=== PATIENT | female | born 1940 | race Caucasian/White ===

== ENCOUNTER 2016-10-24 09:24 | Inpatient (IN) | payer MEDICARE, OTHER ==
[~2016-10-24] VITALS: Ht 152.4 cm; Wt 108.6 kg
[~2016-10-24 09:24] MED LIST: ACIPHEX20 MG PO; AMBIEN 10MG10 MG PO; AMBIEN 5MG TABLE5 MG PO; AMITRIPTYLINE H10 M1 PO; AMOXICILLIN 50500 MG PO; ARICEPT10 MG PO; ASPIR-LOW81 MG PO; ATACAND 16M16 MG/TAB PO; ATACAND PO; ATIVAN 0.50.5 MG/TAB PO; BETAPACE 120MG120 MG PO; BETAPACE AF120 MG PO; CARDIZEM LA240 MG PO; CATAPRES-TTS 10.1 M1 TD; CELEXA 20MG20 MG/TAB PO; CELEXA40 MG PO; CENTRUM SILVER1 TA1 PO; CLARITIN10 MG PO; CLEOCIN HC150 MG/CAP PO; CLEOCIN HCL300 MG PO; CLOPIDOGREL; CLOTRIMAZOLE1% TOP; COLACE 100100 MG/CAP PO; COUMADIN 1MG1 MG/TAB PO; COUMADIN 2MG2 MG/TAB PO; COUMADIN 3MG3 MG/TAB PO; COUMADIN 5MG5 MG/TAB PO; COUMADIN4 MG PO; COZAAR 50MG50 MG/TAB PO; DIABETA 2.5MG2.5 MG PO; DOXYCYCLINE 10100 MG PO; DULCOLAX S10 MG/SUPP RC; DULCOLAX TAB5 MG PO; FERROUS SU325 MG/TAB PO; FLONASE NASAL S16 GM NS; GABAPENTIN100 MG PO; GABAPENTIN300 M1 PO; GLYBURIDE; GLYBURIDE5 MG PO; GUANFACINE1 MG PO; HEPARIN 50500 U/5 ML IV; HEPARIN FLUS100 U/ML IV; IMODIUM 2MG CAPS2 MG PO; IMURAN 50MG TAB50 MG PO; INSLANT SQ; IPRATROPIUM BROM3 M1 IH; KLOR-CON 1010 MEQ PO; LASIX 20MG TABL20 MG PO; LEVAQUIN 5500 MG/TA1 PO; LEVAQUIN 750MG750 M1 PO; LEXAPRO 10MG10 MG PO; LEXAPRO20 MG PO; LIPITOR 10MG10 MG PO; LOVENOX 100100 MG/ML SQ; LOVENOX 4040 MG/0.4 SQ; MACROBID 1100 MG/CAP PO; MAGNESIUM OXID400 MG PO; MAXIPIME2 GM IV; MICRONASE5 MG PO; MILK OF MA400 MG/5 M PO; MILK OF MA400 MG/52 PO; MIRAPEX0.5 MG PO; MUCINEX 60600 MG/TA1 PO; MYLANTA 150 ML150 M1 PO; NEURONTIN300 MG/CAP PO; NORVASC 10MG10 MG PO; NORVASC 5MG5 MG/TAB PO; NORVASC5 MG PO; NOVLOG SQ; NOVOLOG 100U100 U/M1 SC; NS INT FLUSH 1010 ML IV; NYSTATIN POWDER15 GM TOP; NYSTATIN POWDER30 GM TOP; OMEPRAZOLE DR20 MG PO; ONE-A-DAY WOMEN1 TAB PO; PHENERGAN25 MG; PLAVIX 75MG TAB75 MG PO; PREDNISONE10 MG PO; PREDNISONE20 MG PO; PRIL40 PO; PRINIVIL10 MG PO; PROTONIX 40MG T40 MG PO; SEROQUEL 1100 MG/TAB PO; SEROQUEL 2525 MG/TAB PO; SEROQUEL50 MG PO; SERTRALINE; SOTALOL80 MG PO; SYNTHROID0.1 MG PO; SYNTHROID0.1 MG/TAB PO; TYLENOL 325MG325 MG PO; TYLENOL 500MG500 MG PO; TYLENOL SU650 MG/SUP RC; ULTRAM 50MG TAB50 MG PO; VANCOCIN HCL1 GM IV; VTAMINC250TA PO; XARELTO20 MG PO; ZOCOR 20MG20 MG PO; ZOCOR20 MG PO; ZOLOFT100 MG PO
[2016-10-24 10:00] LABS: HEMATOCRIT 45.3 % (37.0-47.0); HEMOGLOBIN 14.1 g/dl (12.5-16.0); MEAN CELL VOLUME 103 fl (80.0-100.0); MEAN CORPUSCULAR HEMOGLOBIN 32 pg (27.0-31.0); MEAN CORPUSCULAR HGB CONC 31 g/dl (33.0-37.0); MEAN PLATELET VOLUME 11.4 fl (7.4-10.4); PLATELET COUNT 216 K/mm3 (130-400); RED BLOOD COUNT 4.41 M/mm3 (4.10-5.30); REDCELL DISTRIBUTION WIDTH-CV 13.6 % (11.5-14.5); WHITE BLOOD COUNT 14.9 K/mm3 (4.8-10.8)
[2016-10-24 10:02] LABS: ADD PATHOLOGY DIFF REVIEW NO
[2016-10-24 10:03] LABS: PROTHROMBIN TIME 42.1 SECONDS (9.7-12.8)
[2016-10-24 10:08] LABS: INR 3.6 (0.8-3.0)
[2016-10-24] MEDS ORDERED: NEOMYCIN AND PO20 ML OT (10:10)
[2016-10-24] MEDS ORDERED: SYNTHROID0.1 MG/TAB PO (10:12)
[2016-10-24] MEDS ORDERED: CIPRO 500MG TA500 MG PO (10:14)
[2016-10-24 10:20] LABS: ADJUSTED CALCIUM 8.9 mg/dL (8.4-10.2); ALBUMIN 3.7 gm/dL (3.5-5.0); BILIRUBIN,TOTAL 0.9 mg/dL (0.0-1.0); CALCIUM 8.7 mg/dL (8.4-10.2); CREATININE, serum 3.7 mg/dL (0.52-1.25); POTASSIUM 4.2 mmol/L (3.4-5.0); TOTAL PROTEIN 7.5 gm/dL (6.4-8.2)
[2016-10-24] MEDS ORDERED: NAMENDA5 MG PO (10:20)
[2016-10-24] MEDS ORDERED: SEROQUEL 2525 MG/TAB PO (10:21)
[2016-10-24 10:37] LABS: C-REACTIVE PROTEIN 11.3 mg/dL (0.0-0.9)
[2016-10-24 10:44] LABS: BAND 6 % (0-10); METAMYELOCYTE 1 % (0-0); NEUTROPHILS 67 % (42.0-75.2); PLATELET ESTIMATE NORMAL (NORMAL)
[2016-10-24 10:45] LABS: TOTAL CELLS COUNTED 100
[2016-10-24 10:46] LABS: TOXIC GRANULATION PRESENT
[2016-10-24 12:33] VITALS: BP 122/61; PULSE 70; TEMP 98.9
[2016-10-24 16:05] LABS: MAGNESIUM 2.2 mg/dL (1.6-2.3); PHOSPHOROUS 6.9 mg/dL (2.5-4.5)
[2016-10-24 17:19] LABS: PH 5 (5-8); SQUAMOUS EPITHELIAL 0-2 /hpf; URINE APPEARANCE Cloudy; URINE BACTERIA Rare /hpf; URINE BILIRUBIN Negative (NEGATIVE); URINE BLOOD Negative (NEGATIVE); URINE COLOR Amber; URINE GLUCOSE Negative (NEGATIVE); URINE KETONE Negative (NEGATIVE); URINE UROBILINOGEN Negative (NEGATIVE); URINE WBC 0-2 /hpf
[2016-10-24 17:35] VITALS: BP 134/68; PULSE 85; TEMP 97.6
[2016-10-24 18:21] LABS: CREATININE, serum 3.68 mg/dL (0.52-1.25)
[2016-10-24 18:53] LABS: FRACTIONAL EXCRETION OF NA+ 2.4 %
[2016-10-24 20:22] VITALS: BP 108/50; PULSE 70; TEMP 97.4
[2016-10-25] VITALS (7 sets, daily range): BP systolic 81–159; BP diastolic 52–116; PULSE 69–73; TEMP 96.6–97.6
[2016-10-25 07:24] LABS: BASO % 0.3 % (0.0-2.0); EOS % 0.2 % (0-4.0); GRAN # 8.4 (1.4-6.5); GRAN % 73.1 % (42.2-75.2); HEMATOCRIT 43.7 % (37.0-47.0); HEMOGLOBIN 12.8 g/dl (12.5-16.0); LYMPH # 1.5 (1.2-3.4); LYMPH % 12.8 % (20.0-51.0); MEAN CORPUSCULAR HGB CONC 29 g/dl (33.0-37.0); MEAN PLATELET VOLUME 11.7 fl (7.4-10.4); MONO # 1.5 (0.1-0.6); MONO % 12.7 % (1.7-9.3); PLATELET COUNT 196 K/mm3 (130-400); RED BLOOD COUNT 4.02 M/mm3 (4.10-5.30); REDCELL DISTRIBUTION WIDTH-CV 13.6 % (11.5-14.5); WHITE BLOOD COUNT 11.4 K/mm3 (4.8-10.8)
[2016-10-25 07:50] LABS: CALCIUM 7.5 mg/dL (8.4-10.2); POTASSIUM 4.5 mmol/L (3.4-5.0)
[2016-10-25 07:54] LABS: CREATININE, serum 4.3 mg/dL (0.52-1.25)
[2016-10-25 07:59] LABS: INR 2.9 (0.8-3.0); PROTHROMBIN TIME 33.6 SECONDS (9.7-12.8)
[2016-10-25 08:47] LABS: MEAN CELL VOLUME 109 fl (80.0-100.0); MEAN CORPUSCULAR HEMOGLOBIN 32 pg (27.0-31.0)
[2016-10-26] VITALS (9 sets, daily range): BP systolic 85–133; BP diastolic 42–90; PULSE 58–74; TEMP 96.8–97.8
[2016-10-26 06:10] LABS: BASO # 0.1 (0.0-0.2); BASO % 0.5 % (0.0-2.0); EOS # 0.1 (0.0-0.7); EOS % 0.7 % (0-4.0); GRAN # 6.9 (1.4-6.5); GRAN % 66.7 % (42.2-75.2); HEMATOCRIT 42.2 % (37.0-47.0); HEMOGLOBIN 12.4 g/dl (12.5-16.0); LYMPH # 1.8 (1.2-3.4); LYMPH % 17.1 % (20.0-51.0); MEAN CELL VOLUME 106 fl (80.0-100.0); MEAN CORPUSCULAR HEMOGLOBIN 31 pg (27.0-31.0); MEAN CORPUSCULAR HGB CONC 29 g/dl (33.0-37.0); MEAN PLATELET VOLUME 11.2 fl (7.4-10.4); MONO # 1.4 (0.1-0.6); MONO % 13.7 % (1.7-9.3); PLATELET COUNT 186 K/mm3 (130-400); RED BLOOD COUNT 3.97 M/mm3 (4.10-5.30); REDCELL DISTRIBUTION WIDTH-CV 13.7 % (11.5-14.5); WHITE BLOOD COUNT 10.4 K/mm3 (4.8-10.8)
[2016-10-26 06:15] LABS: INR 2.3 (0.8-3.0); PROTHROMBIN TIME 26.3 SECONDS (9.7-12.8)
[2016-10-26 06:29] LABS: CALCIUM 7.6 mg/dL (8.4-10.2); MAGNESIUM 1.9 mg/dL (1.6-2.3); PHOSPHOROUS 8.1 mg/dL (2.5-4.5); POTASSIUM 4.5 mmol/L (3.4-5.0)
[2016-10-26 06:38] LABS: CREATININE, serum 5.06 mg/dL (0.52-1.25)
[2016-10-27] VITALS (419 sets, daily range): BP systolic 86–104; BP diastolic 37–61; PULSE 68–102; TEMP 96.8–98.5; O2SAT 79–100
[2016-10-27 14:05] LABS: BASO # 0.1 (0.0-0.2); BASO % 0.5 % (0.0-2.0); EOS % 0.4 % (0-4.0); GRAN # 6.6 (1.4-6.5); GRAN % 69.9 % (42.2-75.2); HEMATOCRIT 42.1 % (37.0-47.0); HEMOGLOBIN 12.8 g/dl (12.5-16.0); LYMPH # 1.6 (1.2-3.4); LYMPH % 16.7 % (20.0-51.0); MEAN CELL VOLUME 104 fl (80.0-100.0); MEAN CORPUSCULAR HEMOGLOBIN 32 pg (27.0-31.0); MEAN CORPUSCULAR HGB CONC 30 g/dl (33.0-37.0); MEAN PLATELET VOLUME 11.5 fl (7.4-10.4); MONO # 1.1 (0.1-0.6); MONO % 11.5 % (1.7-9.3); PLATELET COUNT 176 K/mm3 (130-400); RED BLOOD COUNT 4.04 M/mm3 (4.10-5.30); REDCELL DISTRIBUTION WIDTH-CV 13.3 % (11.5-14.5); WHITE BLOOD COUNT 9.4 K/mm3 (4.8-10.8)
[2016-10-27 14:54] LABS: CALCIUM 7.6 mg/dL (8.4-10.2); POTASSIUM 4.7 mmol/L (3.4-5.0)
[2016-10-27 14:56] LABS: CREATININE, serum 5.58 mg/dL (0.52-1.25)
[2016-10-28] VITALS (1162 sets, daily range): BP systolic 86–142; BP diastolic 50–87; PULSE 60–70; TEMP 96.6–98.6; O2SAT 75–100
[2016-10-28 06:48] LABS: BASO # 0.1 (0.0-0.2); BASO % 0.7 % (0.0-2.0); EOS # 0.1 (0.0-0.7); EOS % 0.8 % (0-4.0); GRAN # 5.8 (1.4-6.5); GRAN % 66.4 % (42.2-75.2); HEMATOCRIT 41.8 % (37.0-47.0); HEMOGLOBIN 12.8 g/dl (12.5-16.0); LYMPH # 1.7 (1.2-3.4); LYMPH % 19.7 % (20.0-51.0); MEAN CELL VOLUME 103 fl (80.0-100.0); MEAN CORPUSCULAR HEMOGLOBIN 32 pg (27.0-31.0); MEAN CORPUSCULAR HGB CONC 31 g/dl (33.0-37.0); MEAN PLATELET VOLUME 11.7 fl (7.4-10.4); MONO % 11.4 % (1.7-9.3); PLATELET COUNT 193 K/mm3 (130-400); RED BLOOD COUNT 4.06 M/mm3 (4.10-5.30); REDCELL DISTRIBUTION WIDTH-CV 13.3 % (11.5-14.5); WHITE BLOOD COUNT 8.7 K/mm3 (4.8-10.8)
[2016-10-28 06:56] LABS: CALCIUM 8.1 mg/dL (8.4-10.2); POTASSIUM 4.5 mmol/L (3.4-5.0)
[2016-10-28 07:00] LABS: CREATININE, serum 6.32 mg/dL (0.52-1.25)
[2016-10-28 07:20] LABS: THYROID STIMULATING HORMONE 0.988 uIU/mL (0.465-4.680)
[2016-10-29] VITALS (939 sets, daily range): BP systolic 102–141; BP diastolic 56–116; PULSE 64–70; TEMP 97.1–97.8; O2SAT 88–100
[2016-10-29 08:21] LABS: BASO % 0.3 % (0.0-2.0); EOS # 0.1 (0.0-0.7); EOS % 0.5 % (0-4.0); GRAN # 7.1 (1.4-6.5); GRAN % 73.5 % (42.2-75.2); HEMATOCRIT 43.5 % (37.0-47.0); HEMOGLOBIN 13.5 g/dl (12.5-16.0); LYMPH # 1.3 (1.2-3.4); LYMPH % 13.3 % (20.0-51.0); MEAN CELL VOLUME 101 fl (80.0-100.0); MEAN CORPUSCULAR HEMOGLOBIN 31 pg (27.0-31.0); MEAN CORPUSCULAR HGB CONC 31 g/dl (33.0-37.0); MEAN PLATELET VOLUME 11.2 fl (7.4-10.4); MONO # 1.2 (0.1-0.6); MONO % 11.9 % (1.7-9.3); PLATELET COUNT 201 K/mm3 (130-400); RED BLOOD COUNT 4.31 M/mm3 (4.10-5.30); REDCELL DISTRIBUTION WIDTH-CV 13.2 % (11.5-14.5); WHITE BLOOD COUNT 9.7 K/mm3 (4.8-10.8)
[2016-10-29 08:27] LABS: PH 5 (5-8); SQUAMOUS EPITHELIAL 0-2 /hpf; URINE APPEARANCE Cloudy; URINE BACTERIA Many /hpf; URINE BILIRUBIN Negative (NEGATIVE); URINE BLOOD 3+ (NEGATIVE); URINE COLOR Yellow; URINE GLUCOSE Negative (NEGATIVE); URINE KETONE Negative (NEGATIVE); URINE RBC >50 /hpf; URINE UROBILINOGEN Negative (NEGATIVE); URINE WBC >50 /hpf
[2016-10-29 08:34] LABS: ADJUSTED CALCIUM 8.9 mg/dL (8.4-10.2); BILIRUBIN,TOTAL 0.7 mg/dL (0.0-1.0); CALCIUM 8.1 mg/dL (8.4-10.2); MAGNESIUM 2.2 mg/dL (1.6-2.3); POTASSIUM 4.9 mmol/L (3.4-5.0); TOTAL PROTEIN 6.7 gm/dL (6.4-8.2)
[2016-10-29 08:43] LABS: CREATININE, serum 7.34 mg/dL (0.52-1.25); PHOSPHOROUS 9.7 mg/dL (2.5-4.5)
[2016-10-30] VITALS (589 sets, daily range): BP systolic 113–153; BP diastolic 59–101; PULSE 70–98; TEMP 96.6–98; O2SAT 85–97
[2016-10-30 07:53] LABS: BASO % 0.4 % (0.0-2.0); EOS # 0.1 (0.0-0.7); GRAN # 4.8 (1.4-6.5); GRAN % 68.9 % (42.2-75.2); HEMATOCRIT 39.5 % (37.0-47.0); HEMOGLOBIN 12.5 g/dl (12.5-16.0); LYMPH # 1.5 (1.2-3.4); MEAN CELL VOLUME 99 fl (80.0-100.0); MEAN CORPUSCULAR HEMOGLOBIN 31 pg (27.0-31.0); MEAN CORPUSCULAR HGB CONC 32 g/dl (33.0-37.0); MONO # 0.6 (0.1-0.6); MONO % 7.8 % (1.7-9.3); PLATELET COUNT 174 K/mm3 (130-400); RED BLOOD COUNT 3.99 M/mm3 (4.10-5.30); REDCELL DISTRIBUTION WIDTH-CV 13.5 % (11.5-14.5)
[2016-10-30 08:06] LABS: BILIRUBIN,TOTAL 0.6 mg/dL (0.0-1.0); CALCIUM 8.2 mg/dL (8.4-10.2); MAGNESIUM 2.1 mg/dL (1.6-2.3); POTASSIUM 4.2 mmol/L (3.4-5.0); TOTAL PROTEIN 6.5 gm/dL (6.4-8.2)
[2016-10-30 08:09] LABS: CREATININE, serum 5.42 mg/dL (0.52-1.25)
[2016-10-31] VITALS (8 sets, daily range): BP systolic 140–163; BP diastolic 74–97; PULSE 76–90; TEMP 97.4–99.1
[2016-10-31 07:00] LABS: HEMATOCRIT 42.9 % (37.0-47.0); HEMOGLOBIN 13.8 g/dl (12.5-16.0); MEAN CELL VOLUME 97 fl (80.0-100.0); MEAN CORPUSCULAR HEMOGLOBIN 31 pg (27.0-31.0); MEAN CORPUSCULAR HGB CONC 32 g/dl (33.0-37.0); MEAN PLATELET VOLUME 11.5 fl (7.4-10.4); PLATELET COUNT 192 K/mm3 (130-400); RED BLOOD COUNT 4.41 M/mm3 (4.10-5.30); REDCELL DISTRIBUTION WIDTH-CV 13.5 % (11.5-14.5); WHITE BLOOD COUNT 12.6 K/mm3 (4.8-10.8)
[2016-10-31 07:20] LABS: ADJUSTED CALCIUM 9.2 mg/dL (8.4-10.2); ALBUMIN 3.1 gm/dL (3.5-5.0); BILIRUBIN,TOTAL 0.7 mg/dL (0.0-1.0); CALCIUM 8.5 mg/dL (8.4-10.2); MAGNESIUM 2.1 mg/dL (1.6-2.3); PHOSPHOROUS 6.4 mg/dL (2.5-4.5); POTASSIUM 3.9 mmol/L (3.4-5.0); TOTAL PROTEIN 6.9 gm/dL (6.4-8.2)
[2016-10-31 07:21] LABS: ADD PATHOLOGY DIFF REVIEW NO
[2016-10-31 07:40] LABS: CREATININE, serum 5.66 mg/dL (0.52-1.25)
[2016-10-31 08:32] LABS: BAND 5 % (0-10); BASOPHIL 1 % (0-2); EOSINOPHIL 1 % (0-4); NEUTROPHILS 68 % (42.0-75.2); PLATELET ESTIMATE NORMAL (NORMAL); TOTAL CELLS COUNTED 100
[2016-10-31 19:04] LABS: HEMATOCRIT 42.4 % (37.0-47.0); HEMOGLOBIN 13.9 g/dl (12.5-16.0); MEAN CELL VOLUME 96 fl (80.0-100.0); MEAN CORPUSCULAR HEMOGLOBIN 32 pg (27.0-31.0); MEAN CORPUSCULAR HGB CONC 33 g/dl (33.0-37.0); MEAN PLATELET VOLUME 11.4 fl (7.4-10.4); PLATELET COUNT 188 K/mm3 (130-400); REDCELL DISTRIBUTION WIDTH-CV 13.6 % (11.5-14.5); WHITE BLOOD COUNT 13.8 K/mm3 (4.8-10.8)
[2016-10-31 19:28] LABS: INR 6.2 (0.8-3.0); PROTHROMBIN TIME 72.3 SECONDS (9.7-12.8)
[2016-11-01 04:23] VITALS: BP 160/91; PULSE 94; TEMP 98.5
[2016-11-01 07:34] LABS: BASO % 0.3 % (0.0-2.0); EOS # 0.1 (0.0-0.7); EOS % 0.9 % (0-4.0); GRAN # 9.7 (1.4-6.5); GRAN % 72.1 % (42.2-75.2); HEMATOCRIT 42.6 % (37.0-47.0); HEMOGLOBIN 13.9 g/dl (12.5-16.0); LYMPH # 1.7 (1.2-3.4); LYMPH % 12.9 % (20.0-51.0); MEAN CELL VOLUME 98 fl (80.0-100.0); MEAN CORPUSCULAR HEMOGLOBIN 32 pg (27.0-31.0); MEAN CORPUSCULAR HGB CONC 33 g/dl (33.0-37.0); MEAN PLATELET VOLUME 12.1 fl (7.4-10.4); MONO # 1.8 (0.1-0.6); PLATELET COUNT 184 K/mm3 (130-400); RED BLOOD COUNT 4.37 M/mm3 (4.10-5.30); REDCELL DISTRIBUTION WIDTH-CV 13.9 % (11.5-14.5); WHITE BLOOD COUNT 13.4 K/mm3 (4.8-10.8)
[2016-11-01 07:37] LABS: MONO % 13.1 % (1.7-9.3)
[2016-11-01 07:42] LABS: ADJUSTED CALCIUM 9.2 mg/dL (8.4-10.2); ALBUMIN 3.2 gm/dL (3.5-5.0); BILIRUBIN,TOTAL 0.7 mg/dL (0.0-1.0); CALCIUM 8.6 mg/dL (8.4-10.2); MAGNESIUM 2.2 mg/dL (1.6-2.3); PHOSPHOROUS 7.1 mg/dL (2.5-4.5); POTASSIUM 3.9 mmol/L (3.4-5.0); TOTAL PROTEIN 6.9 gm/dL (6.4-8.2)
[2016-11-01 07:58] LABS: CREATININE, serum 6.34 mg/dL (0.52-1.25)
[2016-11-01 08:13] LABS: PROTHROMBIN TIME 38.1 SECONDS (9.7-12.8)
[2016-11-01 08:16] LABS: INR 3.3 (0.8-3.0)
[2016-11-01 08:20] VITALS: BP 154/91; PULSE 96; TEMP 97.6
[2016-11-01] MEDS ORDERED: XARELTO20 MG PO (10:05)
[2016-11-01] MEDS ORDERED: ATIVAN 0.50.5 MG/TAB PO ×3 (10:08→10:19)
[2016-11-01] MEDS ORDERED: SEROQUEL 1100 MG/TAB PO (10:09)
[2016-11-01] MEDS ORDERED: SEROQUEL 2525 MG/TAB PO (10:10)
[2016-11-01] MEDS ORDERED: VITAMIN C500 MG PO (10:13)
[2016-11-01] MEDS ORDERED: CATAPRES-TTS 10.1 M1 TD (10:13)
[2016-11-01] MEDS ORDERED: ULTRAM 50MG TAB50 MG PO (10:21)
[2016-11-01 11:24] VITALS: BP 151/77; PULSE 80; TEMP 97.5
[2016-11-01 16:32] VITALS: BP 157/80; PULSE 75; TEMP 97.7
[2016-11-01 22:19] VITALS: BP 155/92; PULSE 104; TEMP 98.2
[2016-11-02] VITALS (7 sets, daily range): BP systolic 127–150; BP diastolic 63–98; PULSE 84–130; TEMP 96.8–99
[2016-11-02 07:29] LABS: CALCIUM 8.7 mg/dL (8.4-10.2); INR 1.6 (0.8-3.0); POTASSIUM 3.7 mmol/L (3.4-5.0)
[2016-11-02 07:46] LABS: CREATININE, serum 4.66 mg/dL (0.52-1.25)
[2016-11-03 01:13] VITALS: BP 139/81; PULSE 74; TEMP 97.6
[2016-11-03 04:45] VITALS: BP 152/84; PULSE 114; TEMP 97.5
[2016-11-03 07:56] LABS: INR 1.4 (0.8-3.0); PROTHROMBIN TIME 15.4 SECONDS (9.7-12.8)
[2016-11-03 08:04] VITALS: BP 145/86; PULSE 120; TEMP 97.3
[2016-11-03 08:16] LABS: POTASSIUM 3.9 mmol/L (3.4-5.0)
[2016-11-03 11:12] LABS: POTASSIUM 4.4 mmol/L (3.4-5.0)
[2016-11-03 11:17] LABS: CREATININE, serum 4.97 mg/dL (0.52-1.25)
[2016-11-03 12:00] VITALS: BP 154/96; PULSE 76; TEMP 98
[2016-11-03 19:58] VITALS: PULSE 106; TEMP 98.7
[2016-11-04 01:39] VITALS: BP 108/62; PULSE 107; TEMP 97.8
[2016-11-04 03:36] VITALS: PULSE 56; TEMP 98
[2016-11-04 07:31] LABS: INR 1.5 (0.8-3.0); PROTHROMBIN TIME 16.5 SECONDS (9.7-12.8)
[2016-11-04 07:47] LABS: HEMATOCRIT 44.3 % (37.0-47.0); HEMOGLOBIN 14.2 g/dl (12.5-16.0); MEAN CELL VOLUME 98 fl (80.0-100.0); MEAN CORPUSCULAR HEMOGLOBIN 31 pg (27.0-31.0); MEAN CORPUSCULAR HGB CONC 32 g/dl (33.0-37.0); MEAN PLATELET VOLUME 12.2 fl (7.4-10.4); PLATELET COUNT 214 K/mm3 (130-400); RED BLOOD COUNT 4.52 M/mm3 (4.10-5.30); WHITE BLOOD COUNT 15.5 K/mm3 (4.8-10.8)
[2016-11-04 07:55] LABS: CALCIUM 9.1 mg/dL (8.4-10.2); CREATININE, serum 3.47 mg/dL (0.52-1.25); POTASSIUM 3.6 mmol/L (3.4-5.0)
[2016-11-04 08:27] VITALS: BP 159/97; PULSE 107; TEMP 97.6
[2016-11-04 11:59] VITALS: BP 166/95; PULSE 79; TEMP 97.6
[2016-11-04 14:37] LABS: CREATININE, serum 3.47 mg/dL (0.52-1.25); POTASSIUM 3.8 mmol/L (3.4-5.0)
[2016-11-04 16:33] VITALS: BP 178/81; PULSE 88; TEMP 98.7
[2016-11-04 20:36] VITALS: BP 156/104; PULSE 105
[2016-11-04 21:07] LABS: CREATININE, serum 3.42 mg/dL (0.52-1.25); POTASSIUM 4.4 mmol/L (3.4-5.0)
[2016-11-05] VITALS (7 sets, daily range): BP systolic 160–182; BP diastolic 90–111; PULSE 77–108; TEMP 97.8–99
[2016-11-05 06:25] LABS: HEMATOCRIT 43.4 % (37.0-47.0); HEMOGLOBIN 13.9 g/dl (12.5-16.0); MEAN CELL VOLUME 98 fl (80.0-100.0); MEAN CORPUSCULAR HEMOGLOBIN 31 pg (27.0-31.0); MEAN CORPUSCULAR HGB CONC 32 g/dl (33.0-37.0); MEAN PLATELET VOLUME 11.8 fl (7.4-10.4); PLATELET COUNT 211 K/mm3 (130-400); RED BLOOD COUNT 4.45 M/mm3 (4.10-5.30); REDCELL DISTRIBUTION WIDTH-CV 14.3 % (11.5-14.5); WHITE BLOOD COUNT 16.8 K/mm3 (4.8-10.8)
[2016-11-05 06:29] LABS: ADD PATHOLOGY DIFF REVIEW NO
[2016-11-05 06:37] LABS: BAND 6 % (0-10); NEUTROPHILS 81 % (42.0-75.2); PLATELET ESTIMATE NORMAL (NORMAL); TOTAL CELLS COUNTED 100
[2016-11-05 06:51] LABS: CREATININE, serum 3.53 mg/dL (0.52-1.25); POTASSIUM 3.8 mmol/L (3.4-5.0)
[2016-11-05 08:57] LABS: INR 1.8 (0.8-3.0); PROTHROMBIN TIME 19.8 SECONDS (9.7-12.8)
[2016-11-06 01:13] VITALS: BP 178/74; PULSE 90; TEMP 98.7
[2016-11-06 05:49] VITALS: BP 163/87; PULSE 97; TEMP 97.8
[2016-11-06 07:53] LABS: HEMATOCRIT 44.9 % (37.0-47.0); HEMOGLOBIN 14.2 g/dl (12.5-16.0); MEAN CELL VOLUME 98 fl (80.0-100.0); MEAN CORPUSCULAR HEMOGLOBIN 31 pg (27.0-31.0); MEAN CORPUSCULAR HGB CONC 32 g/dl (33.0-37.0); MEAN PLATELET VOLUME 11.8 fl (7.4-10.4); PLATELET COUNT 223 K/mm3 (130-400); RED BLOOD COUNT 4.57 M/mm3 (4.10-5.30); REDCELL DISTRIBUTION WIDTH-CV 14.6 % (11.5-14.5); WHITE BLOOD COUNT 14.8 K/mm3 (4.8-10.8)
[2016-11-06 08:02] LABS: ADD PATHOLOGY DIFF REVIEW NO
[2016-11-06 08:07] LABS: INR 5.3 (0.8-3.0)
[2016-11-06 08:10] LABS: ALBUMIN 3.2 gm/dL (3.5-5.0); CALCIUM 9.1 mg/dL (8.4-10.2); CREATININE, serum 3.5 mg/dL (0.52-1.25); POTASSIUM 3.2 mmol/L (3.4-5.0); TOTAL PROTEIN 7.3 gm/dL (6.4-8.2)
[2016-11-06 08:35] LABS: BAND 4 % (0-10); BASOPHIL 1 % (0-2); EOSINOPHIL 1 % (0-4); METAMYELOCYTE 2 % (0-0); MYELOCYTE 1 % (0-0); NEUTROPHILS 66 % (42.0-75.2); PLATELET ESTIMATE NORMAL (NORMAL); TOTAL CELLS COUNTED 100
[2016-11-06 08:39] LABS: BILIRUBIN,DIRECT 0.5 mg/dL (0.0-0.4); BILIRUBIN,TOTAL 0.6 mg/dL (0.0-1.0)
[2016-11-06 08:45] VITALS: BP 175/120; PULSE 124; TEMP 98.1
[2016-11-06 10:45] LABS: INR 6.2 (0.8-3.0); PROTHROMBIN TIME 72.8 SECONDS (9.7-12.8)
[2016-11-06 13:14] VITALS: BP 190/105; PULSE 67; TEMP 97.8
[2016-11-06 16:25] VITALS: BP 148/95; PULSE 73; TEMP 97.3
[2016-11-06 20:21] VITALS: BP 133/85; PULSE 100; TEMP 97.5
[2016-11-07 00:19] VITALS: BP 155/86; PULSE 76; TEMP 96.7
[2016-11-07 04:43] VITALS: BP 155/84; PULSE 105; TEMP 97
[2016-11-07 07:10] LABS: INR 4.3 (0.8-3.0); PROTHROMBIN TIME 49.9 SECONDS (9.7-12.8)
[2016-11-07 07:11] LABS: ALBUMIN 3.2 gm/dL (3.5-5.0); BILIRUBIN,DIRECT 0.6 mg/dL (0.0-0.4); BILIRUBIN,TOTAL 0.7 mg/dL (0.0-1.0); CREATININE, serum 3.33 mg/dL (0.52-1.25); POTASSIUM 3.2 mmol/L (3.4-5.0); TOTAL PROTEIN 7.2 gm/dL (6.4-8.2)
[2016-11-07 08:15] VITALS: BP 170/108; PULSE 112; TEMP 97.6
[2016-11-07 10:51] VITALS: BP 153/88; PULSE 103
[2016-11-07 16:40] VITALS: BP 162/82; PULSE 91; TEMP 98
[2016-11-07 20:45] VITALS: BP 162/98; PULSE 78; TEMP 98.4
[2016-11-08 01:05] VITALS: BP 160/95; PULSE 104; TEMP 97.6
[2016-11-08 04:25] VITALS: BP 166/100; PULSE 106; TEMP 98.4
[2016-11-08 07:09] LABS: INR 5.2 (0.8-3.0); PROTHROMBIN TIME 60.7 SECONDS (9.7-12.8)
[2016-11-08 07:12] LABS: ALBUMIN 3.2 gm/dL (3.5-5.0); BILIRUBIN,DIRECT 0.5 mg/dL (0.0-0.4); BILIRUBIN,TOTAL 0.6 mg/dL (0.0-1.0); TOTAL PROTEIN 6.9 gm/dL (6.4-8.2)
[2016-11-08 07:36] VITALS: BP 155/109; PULSE 79; TEMP 96.6
[2016-11-08] MEDS ORDERED: FLAGYL500 MG PO (08:01)
[2016-11-08] MEDS ORDERED: LOPRESSOR 550 MG/TAB PO (08:03)
[2016-11-08] MEDS ORDERED: HEPARIN LOCK FLU5 M1 IV (08:03)
[2016-11-08] MEDS ORDERED: SEROQUEL 2525 MG/TAB PO (08:05)
[2016-11-08] MEDS ORDERED: SEROQUEL50 MG PO (08:05)
[2016-11-08] MEDS ORDERED: NS INT FLUSH 1010 ML IV (08:06)
[2016-11-08 08:24] LABS: CREATININE, serum 3.02 mg/dL (0.52-1.25)
[2016-11-08] MEDS ORDERED: PROCARDIA XL 3030 MG PO (09:11)
[2016-11-08 09:55] VITALS: BP 111/53
[2016-11-08 11:58] VITALS: BP 137/95; PULSE 60; TEMP 97.1
[2016-11-08] MEDS ORDERED: KLOR-CON M2020 MEQ PO (13:42)
[2016-11-08 14:46] VITALS: BP 137/95; PULSE 60; TEMP 97.1
== END 2016-11-08 14:30 | DRG 871 ==
LOC: COL.ER 09:24 → MEDICAL 11:00 → IMCU 10-27 15:55 → MEDICAL 10-30 17:23
PROVIDERS: Emergency Medicine; Family Medicine; Internal Medicine; Internal Medicine Cardiovascular Disease; Internal Medicine Interventional Cardiology; Internal Medicine Nephrology; Nurse Practitioner Family; Physician Assistant
PROC: 02HV33Z Insertion of Infusion Device into Superior Vena Cava, Percutaneous Approach (ICD-10-PCS; principal; 2016-10-28)
PROC: 5A1D60Z (ICD-10-PCS; 2016-10-29)
DX: A41.9 Sepsis, unspecified organism (principal); N17.0 Acute kidney failure with tubular necrosis; L03.211 Cellulitis of face; A04.7 Enterocolitis due to Clostridium difficile; Z68.42 Body mass index [BMI] 45.0-49.9, adult; I50.32 Chronic diastolic (congestive) heart failure; B37.0 Candidal stomatitis; E46 Unspecified protein-calorie malnutrition; Z66 Do not resuscitate; A46 Erysipelas; E66.01 Morbid (severe) obesity due to excess calories; I11.0 Hypertensive heart disease with heart failure; E11.42 Type 2 diabetes mellitus with diabetic polyneuropathy; Z95.810 Presence of automatic (implantable) cardiac defibrillator; Z87.891 Personal history of nicotine dependence; F03.90 Unspecified dementia, unspecified severity, without behavioral disturbance, psychotic disturbance, mood disturbance, and anxiety; E87.6 Hypokalemia; I48.2 Chronic atrial fibrillation
CPT/HCPCS: 99222-AI; 99232-AI; 99233-AI; 99239; A4315; A9284; C1751; J0360; J0690; J1644; J1815; J1940; J2543; J2916; J2997; J3370; J3430; J3480; J7030; J7050; J7060

== ENCOUNTER → 2016-11-10 | Outpatient (REF) ==
[~2016-11-10] MED LIST changes: +CARDIZEM CD 18180 MG PO; +CIPRO 500MG TA500 MG PO; +ELIQUIS 5MG PO; +FLAGYL500 MG PO; +HEPARIN LOCK FLU5 M1 IV; +K-TAB10 PO; +KLOR-CON M2020 MEQ PO; +LASIX 40MG TABL40 MG PO; +LOPRESSOR 550 MG/TAB PO; +MEGACE ORAL40 MG/ML PO; +MIRTAZAPINE7.5 MG PO; +NAMENDA5 MG PO; +NEOMYCIN AND PO20 ML OT; +PROCARDIA XL 3030 MG PO; +VITAMIN C500 MG PO
[2016-11-10 14:17] LABS: INR 2.6 (0.8-3.0); PROTHROMBIN TIME 29.3 SECONDS (9.7-12.8)
[2016-11-10 14:23] LABS: CALCIUM 8.5 mg/dL (8.4-10.2); CREATININE, serum 2.31 mg/dL (0.52-1.25); POTASSIUM 4.2 mmol/L (3.4-5.0)
== END ==
LOC: ZLAB.STJ 13:59
PROVIDERS: Internal Medicine
DX: Z01.89 Encounter for other specified special examinations (principal)

== ENCOUNTER → 2016-11-14 | Outpatient (REF) | LOC: ZAIV 06:00 | DX: Z09 Encounter for follow-up examination after completed treatment for conditions other than malignant neoplasm (principal) ==

== ENCOUNTER 2016-11-15 16:02 | Inpatient (IN) | payer MEDICARE, OTHER ==
[~2016-11-15] VITALS: Ht 152.4 cm; Wt 105.0 kg
[2016-11-15] VITALS (105 sets, daily range): BP systolic 128; BP diastolic 98; PULSE 101; TEMP 97; O2SAT 96–100
[~2016-11-15 16:02] MED LIST changes: -CARDIZEM CD 18180 MG PO; -ELIQUIS 5MG PO; -K-TAB10 PO; -LASIX 40MG TABL40 MG PO; -MEGACE ORAL40 MG/ML PO; -MIRTAZAPINE7.5 MG PO
[2016-11-15 17:29] LABS: BASO # 0.1 (0.0-0.2); BASO % 0.4 % (0.0-2.0); EOS # 0.1 (0.0-0.7); EOS % 0.9 % (0-4.0); HEMATOCRIT 48.9 % (37.0-47.0); HEMOGLOBIN 14.9 g/dl (12.5-16.0); LYMPH # 2.9 (1.2-3.4); LYMPH % 23.2 % (20.0-51.0); MEAN CELL VOLUME 102 fl (80.0-100.0); MEAN CORPUSCULAR HEMOGLOBIN 31 pg (27.0-31.0); MEAN CORPUSCULAR HGB CONC 31 g/dl (33.0-37.0); MEAN PLATELET VOLUME 12.6 fl (7.4-10.4); MONO # 1.3 (0.1-0.6); MONO % 10.2 % (1.7-9.3); PLATELET COUNT 238 K/mm3 (130-400); RED BLOOD COUNT 4.82 M/mm3 (4.10-5.30); REDCELL DISTRIBUTION WIDTH-CV 15.2 % (11.5-14.5); WHITE BLOOD COUNT 12.3 K/mm3 (4.8-10.8)
[2016-11-15 17:30] LABS: ANION GAP 17 mmol/L (7-16); BLOOD UREA NITROGEN 45 mg/dL (7-17); CALCIUM 8.1 mg/dL (8.4-10.2); CARBON DIOXIDE 32 mmol/L (22-30); CHLORIDE 102 mmol/L (98-107); CREATININE, serum 2.14 mg/dL (0.52-1.25); GLUCOSE 133 mg/dL (74-106); SODIUM 151 mmol/L (137-145)
[2016-11-15 17:43] LABS: B-TYPE NATRIURETIC PEPTIDE 5430 pg/mL (0-125)
[2016-11-15 17:53] LABS: TROPONIN-I < 0.012 ng/mL (0.000-0.034)
[2016-11-16] VITALS (660 sets, daily range): BP systolic 83–129; BP diastolic 54–97; PULSE 60–120; TEMP 97.1–98; O2SAT 85–100
[2016-11-16 10:38] LABS: CALCIUM 7.7 mg/dL (8.4-10.2); CREATININE, serum 1.97 mg/dL (0.52-1.25); MAGNESIUM 1.2 mg/dL (1.6-2.3); POTASSIUM 3.5 mmol/L (3.4-5.0)
[2016-11-16 10:43] LABS: PARTIAL THROMBOPLASTIN TIME 36.9 SECONDS (26.0-37.0)
[2016-11-17 03:37] VITALS: BP 125/57; PULSE 51; TEMP 97.7
[2016-11-17 04:25] VITALS: BP 111/58; PULSE 72; TEMP 98.2
[2016-11-17 07:59] LABS: CALCIUM 7.7 mg/dL (8.4-10.2); CREATININE, serum 2.04 mg/dL (0.52-1.25)
[2016-11-17 08:19] LABS: POTASSIUM 2.6 mmol/L (3.4-5.0)
[2016-11-17 08:27] VITALS: BP 145/67; PULSE 87; TEMP 99.2
[2016-11-17 10:40] LABS: MAGNESIUM 1.2 mg/dL (1.6-2.3)
[2016-11-17 11:37] VITALS: BP 97/67; PULSE 78; TEMP 98.2
[2016-11-17 15:33] LABS: PH 5 (5-8); URINE APPEARANCE Hazy; URINE BACTERIA Rare /hpf; URINE BILIRUBIN Negative (NEGATIVE); URINE BLOOD Negative (NEGATIVE); URINE COLOR Yellow; URINE GLUCOSE Negative (NEGATIVE); URINE KETONE Negative (NEGATIVE); URINE RBC 0-2 /hpf; URINE UROBILINOGEN Negative (NEGATIVE)
[2016-11-17 15:44] VITALS: BP 115/66; PULSE 71
[2016-11-17 17:24] LABS: INR 1.8 (0.8-3.0)
[2016-11-17 19:51] VITALS: BP 129/81; PULSE 50; TEMP 97.8
[2016-11-18] VITALS (7 sets, daily range): BP systolic 89–154; BP diastolic 58–89; PULSE 18–119; TEMP 97.3–98.3
[2016-11-18 08:09] LABS: HEMATOCRIT 41.4 % (37.0-47.0); MEAN CELL VOLUME 102 fl (80.0-100.0); MEAN CORPUSCULAR HEMOGLOBIN 32 pg (27.0-31.0); MEAN CORPUSCULAR HGB CONC 31 g/dl (33.0-37.0); PLATELET COUNT 142 K/mm3 (130-400); RED BLOOD COUNT 4.06 M/mm3 (4.10-5.30); REDCELL DISTRIBUTION WIDTH-CV 15.2 % (11.5-14.5); WHITE BLOOD COUNT 7.9 K/mm3 (4.8-10.8)
[2016-11-18 08:19] LABS: PARTIAL THROMBOPLASTIN TIME 52.3 SECONDS (26.0-37.0)
[2016-11-18 08:37] LABS: CALCIUM 7.7 mg/dL (8.4-10.2); CREATININE, serum 2.09 mg/dL (0.52-1.25)
[2016-11-18 08:46] LABS: HEMOGLOBIN 12.8 g/dl (12.5-16.0)
[2016-11-19 04:10] VITALS: BP 112/64; PULSE 74; TEMP 98.1
[2016-11-19 07:23] LABS: CALCIUM 7.8 mg/dL (8.4-10.2); CREATININE, serum 2.07 mg/dL (0.52-1.25); POTASSIUM 3.4 mmol/L (3.4-5.0)
[2016-11-19 07:41] VITALS: BP 104/65; PULSE 61; TEMP 98.6
[2016-11-19 11:51] VITALS: BP 118/69; PULSE 66; TEMP 97.9
[2016-11-19 15:42] VITALS: BP 141/95; PULSE 52; TEMP 98.2
[2016-11-19 19:35] VITALS: BP 105/69; PULSE 62; TEMP 98.2
[2016-11-19 23:31] VITALS: BP 109/65; PULSE 52; TEMP 98.6
[2016-11-20 04:20] VITALS: BP 118/76; PULSE 50; TEMP 97.2
[2016-11-20 07:17] LABS: HEMATOCRIT 42.6 % (37.0-47.0); HEMOGLOBIN 12.9 g/dl (12.5-16.0); MEAN CELL VOLUME 103 fl (80.0-100.0); MEAN CORPUSCULAR HEMOGLOBIN 31 pg (27.0-31.0); MEAN CORPUSCULAR HGB CONC 30 g/dl (33.0-37.0); MEAN PLATELET VOLUME 12.6 fl (7.4-10.4); PLATELET COUNT 156 K/mm3 (130-400); RED BLOOD COUNT 4.13 M/mm3 (4.10-5.30); REDCELL DISTRIBUTION WIDTH-CV 15.5 % (11.5-14.5); WHITE BLOOD COUNT 7.5 K/mm3 (4.8-10.8)
[2016-11-20 07:33] LABS: CALCIUM 8.3 mg/dL (8.4-10.2); CREATININE, serum 2.08 mg/dL (0.52-1.25); POTASSIUM 3.8 mmol/L (3.4-5.0)
[2016-11-20 08:15] VITALS: BP 119/72; PULSE 107; TEMP 97.2
[2016-11-20 11:34] VITALS: BP 139/95; PULSE 93; TEMP 98.7
[2016-11-20 16:14] VITALS: BP 134/85; PULSE 124; TEMP 97.5
[2016-11-20 20:09] VITALS: BP 143/100; PULSE 83; TEMP 98.1
[2016-11-20 22:54] VITALS: BP 138/103; PULSE 82; TEMP 97.6
[2016-11-21 04:20] VITALS: BP 104/87; PULSE 90; TEMP 97.6
[2016-11-21 08:07] LABS: CALCIUM 8.7 mg/dL (8.4-10.2); CREATININE, serum 1.84 mg/dL (0.52-1.25); POTASSIUM 3.7 mmol/L (3.4-5.0)
[2016-11-21 08:10] VITALS: BP 116/61; PULSE 84; TEMP 97.9
[2016-11-21 11:45] VITALS: BP 100/64; PULSE 79; TEMP 97.9
[2016-11-21] MEDS ORDERED: ELIQUIS 5MG PO (12:10)
[2016-11-21] MEDS ORDERED: CARDIZEM CD 18180 MG PO (12:17)
[2016-11-21] MEDS ORDERED: MEGACE ORAL40 MG/ML PO (14:22)
[2016-11-21 15:30] VITALS: BP 100/64; PULSE 79; TEMP 97.9
== END 2016-11-21 15:41 | DRG 309 ==
LOC: COL.ER 16:02 → ICU 17:13 → IMCU 17:13 → ICU 19:49 → MEDICAL 11-16 17:47
PROVIDERS: Emergency Medicine; Internal Medicine; Internal Medicine Nephrology; Nurse Practitioner Family
PROC: 06PYX3Z Removal of Infusion Device from Lower Vein, External Approach (ICD-10-PCS; principal; 2016-11-16)
DX: I48.2 Chronic atrial fibrillation (principal); E87.0 Hyperosmolality and hypernatremia; I13.0 Hypertensive heart and chronic kidney disease with heart failure and stage 1 through stage 4 chronic kidney disease, or unspecified chronic kidney disease; I50.32 Chronic diastolic (congestive) heart failure; Z68.42 Body mass index [BMI] 45.0-49.9, adult; Z66 Do not resuscitate; E11.42 Type 2 diabetes mellitus with diabetic polyneuropathy; E11.22 Type 2 diabetes mellitus with diabetic chronic kidney disease; N18.9 Chronic kidney disease, unspecified; E66.01 Morbid (severe) obesity due to excess calories; Z95.810 Presence of automatic (implantable) cardiac defibrillator; F03.90 Unspecified dementia, unspecified severity, without behavioral disturbance, psychotic disturbance, mood disturbance, and anxiety; E87.6 Hypokalemia; Z86.711 Personal history of pulmonary embolism; Z79.01 Long term (current) use of anticoagulants
CPT/HCPCS: 99223-AI; 99231-AI; 99232-AI; 99233-AI; 99239; J1644; J1650; J1815; J3480; J7050

== ENCOUNTER → 2016-11-15 | Outpatient (REF) | LOC: ZCOL.LAB 11:03 | DX: Z01.89 Encounter for other specified special examinations (principal) ==

== ENCOUNTER → 2016-11-24 | Outpatient (REF) ==
[~2016-11-24] MED LIST changes: +CARDIZEM CD 18180 MG PO; +ELIQUIS 5MG PO; +K-TAB10 PO; +LASIX 40MG TABL40 MG PO; +MEGACE ORAL40 MG/ML PO; +MIRTAZAPINE7.5 MG PO
[2016-11-24 10:14] LABS: CALCIUM 7.6 mg/dL (8.4-10.2); CREATININE, serum 1.64 mg/dL (0.52-1.25); POTASSIUM 3.7 mmol/L (3.4-5.0)
[2016-11-24 10:18] LABS: BASO % 0.4 % (0.0-2.0); EOS # 0.2 (0.0-0.7); EOS % 2.6 % (0-4.0); GRAN # 3.4 (1.4-6.5); GRAN % 46.9 % (42.2-75.2); HEMATOCRIT 40.9 % (37.0-47.0); HEMOGLOBIN 12.6 g/dl (12.5-16.0); LYMPH # 2.7 (1.2-3.4); LYMPH % 37.6 % (20.0-51.0); MEAN CELL VOLUME 101 fl (80.0-100.0); MEAN CORPUSCULAR HEMOGLOBIN 31 pg (27.0-31.0); MEAN CORPUSCULAR HGB CONC 31 g/dl (33.0-37.0); MEAN PLATELET VOLUME 12.7 fl (7.4-10.4); MONO # 0.9 (0.1-0.6); MONO % 12.1 % (1.7-9.3); PLATELET COUNT 153 K/mm3 (130-400); RED BLOOD COUNT 4.05 M/mm3 (4.10-5.30); REDCELL DISTRIBUTION WIDTH-CV 14.7 % (11.5-14.5); WHITE BLOOD COUNT 7.3 K/mm3 (4.8-10.8)
== END ==
LOC: ZLAB.STJ 10:04
PROVIDERS: Internal Medicine
DX: Z01.89 Encounter for other specified special examinations (principal)

== ENCOUNTER → 2016-12-16 | Outpatient (CLI) | payer MEDICARE, OTHER ==
[2016-12-16 19:17] LABS: BASO # 0.1 (0.0-0.2); BASO % 0.6 % (0.0-2.0); EOS # 0.1 (0.0-0.7); EOS % 0.9 % (0-4.0); GRAN # 6.1 (1.4-6.5); GRAN % 55.5 % (42.2-75.2); HEMATOCRIT 48.3 % (37.0-47.0); LYMPH # 3.6 (1.2-3.4); LYMPH % 33.1 % (20.0-51.0); MEAN CELL VOLUME 99 fl (80.0-100.0); MEAN CORPUSCULAR HEMOGLOBIN 31 pg (27.0-31.0); MEAN CORPUSCULAR HGB CONC 31 g/dl (33.0-37.0); MEAN PLATELET VOLUME 12.3 fl (7.4-10.4); MONO # 1.1 (0.1-0.6); MONO % 9.7 % (1.7-9.3); PLATELET COUNT 319 K/mm3 (130-400); RED BLOOD COUNT 4.87 M/mm3 (4.10-5.30); REDCELL DISTRIBUTION WIDTH-CV 14.2 % (11.5-14.5); WHITE BLOOD COUNT 10.9 K/mm3 (4.8-10.8)
[2016-12-16 19:18] LABS: INR 2.4 (0.8-3.0); PROTHROMBIN TIME 27.5 SECONDS (9.7-12.8)
[2016-12-16 19:24] LABS: CALCIUM 9.1 mg/dL (8.4-10.2); CREATININE, serum 0.81 mg/dL (0.52-1.25); POTASSIUM 3.5 mmol/L (3.4-5.0)
== END ==
LOC: ZLAB.STJ 18:43
PROVIDERS: Internal Medicine
DX: N17.9 Acute kidney failure, unspecified (principal); Z02.89 Encounter for other administrative examinations

== ENCOUNTER → 2017-01-24 | Outpatient (CLI) | payer MEDICARE, OTHER | LOC: COL.RAD 14:20 | DX: R91.8 Other nonspecific abnormal finding of lung field (principal) ==

== ENCOUNTER → 2017-01-26 | Outpatient (REF) ==
[2017-01-26 09:21] LABS: BASO % 0.4 % (0.0-2.0); EOS # 0.2 (0.0-0.7); EOS % 2.2 % (0-4.0); GRAN # 6.9 (1.4-6.5); GRAN % 68.2 % (42.2-75.2); HEMOGLOBIN 14.3 g/dl (12.5-16.0); LYMPH # 2.3 (1.2-3.4); LYMPH % 23.2 % (20.0-51.0); MEAN CELL VOLUME 99 fl (80.0-100.0); MEAN CORPUSCULAR HEMOGLOBIN 31 pg (27.0-31.0); MEAN CORPUSCULAR HGB CONC 32 g/dl (33.0-37.0); MEAN PLATELET VOLUME 11.9 fl (7.4-10.4); MONO # 0.6 (0.1-0.6); MONO % 5.5 % (1.7-9.3); PLATELET COUNT 235 K/mm3 (130-400); RED BLOOD COUNT 4.55 M/mm3 (4.10-5.30); REDCELL DISTRIBUTION WIDTH-CV 14.3 % (11.5-14.5); WHITE BLOOD COUNT 10.1 K/mm3 (4.8-10.8)
[2017-01-26 09:33] LABS: CALCIUM 8.6 mg/dL (8.4-10.2); CREATININE, serum 0.53 mg/dL (0.52-1.25); POTASSIUM 3.7 mmol/L (3.4-5.0)
== END ==
LOC: ZLAB.STJ 09:15
DX: Z01.89 Encounter for other specified special examinations (principal)

== ENCOUNTER → 2017-02-28 | Outpatient (REF) ==
[2017-02-28 14:40] LABS: BASO # 0.1 (0.0-0.2); BASO % 0.6 % (0.0-2.0); EOS # 0.1 (0.0-0.7); GRAN # 7.8 (1.4-6.5); GRAN % 70.8 % (42.2-75.2); HEMATOCRIT 49.7 % (37.0-47.0); HEMOGLOBIN 16.2 g/dl (12.5-16.0); LYMPH # 2.1 (1.2-3.4); LYMPH % 18.8 % (20.0-51.0); MEAN CELL VOLUME 97 fl (80.0-100.0); MEAN CORPUSCULAR HEMOGLOBIN 32 pg (27.0-31.0); MEAN CORPUSCULAR HGB CONC 33 g/dl (33.0-37.0); MEAN PLATELET VOLUME 11.4 fl (7.4-10.4); MONO # 0.9 (0.1-0.6); MONO % 8.5 % (1.7-9.3); PLATELET COUNT 251 K/mm3 (130-400); RED BLOOD COUNT 5.12 M/mm3 (4.10-5.30); REDCELL DISTRIBUTION WIDTH-CV 13.9 % (11.5-14.5)
[2017-02-28 14:46] LABS: SQUAMOUS EPITHELIAL 0-2 /hpf; URINE BACTERIA Rare /hpf; URINE WBC 20-50 /hpf
[2017-02-28 14:51] LABS: ADJUSTED CALCIUM 9.5 mg/dL (8.4-10.2); ALBUMIN 3.4 gm/dL (3.5-5.0); BILIRUBIN,TOTAL 0.7 mg/dL (0.0-1.0); CREATININE, serum 0.51 mg/dL (0.52-1.25); POTASSIUM 3.7 mmol/L (3.4-5.0); TOTAL PROTEIN 6.3 gm/dL (6.4-8.2)
[2017-02-28 14:55] LABS: PH 6 (5-8); URINE APPEARANCE Hazy; URINE BILIRUBIN Negative (NEGATIVE); URINE BLOOD Negative (NEGATIVE); URINE COLOR Yellow; URINE GLUCOSE Negative (NEGATIVE); URINE KETONE Negative (NEGATIVE); URINE UROBILINOGEN Negative (NEGATIVE)
[2017-02-28 15:20] LABS: THYROID STIMULATING HORMONE 1.32 uIU/mL (0.465-4.680)
== END ==
LOC: ZLAB.STJ 14:35
PROVIDERS: Internal Medicine
DX: Z01.89 Encounter for other specified special examinations (principal)

== ENCOUNTER → 2017-03-01 | Outpatient (REF) | LOC: ZLAB.STJ 09:45 | PROVIDERS: Internal Medicine | DX: Z01.89 Encounter for other specified special examinations (principal) ==

== ENCOUNTER → 2017-03-15 | Outpatient (REF) ==
[2017-03-15 14:33] LABS: PH 7 (5-8); URINE APPEARANCE Clear; URINE BACTERIA Rare /hpf; URINE BILIRUBIN Negative (NEGATIVE); URINE BLOOD Negative (NEGATIVE); URINE COLOR Yellow; URINE GLUCOSE Negative (NEGATIVE); URINE KETONE Negative (NEGATIVE); URINE RBC 0-2 /hpf; URINE UROBILINOGEN Negative (NEGATIVE); URINE WBC 0-2 /hpf
== END ==
LOC: ZLAB.STJ 14:24
PROVIDERS: Internal Medicine
DX: Z01.89 Encounter for other specified special examinations (principal)

== ENCOUNTER 2017-03-26 09:48 | Inpatient (IN) | payer MEDICARE, OTHER ==
[2017-03-26] VITALS (591 sets, daily range): BP systolic 106–152; BP diastolic 60–92; PULSE 61–74; TEMP 97–97.9; O2SAT 82–100
[~2017-03-26] VITALS: Ht 170.2 cm; Wt 113.7 kg
[~2017-03-26 09:48] MED LIST changes: -K-TAB10 PO; -LASIX 40MG TABL40 MG PO; -MIRTAZAPINE7.5 MG PO
[2017-03-26 10:29] LABS: ARTERIAL BLD GAS O2 SATURATION 95.7 % (92-100); ARTERIAL BLD GAS TCO2 CT 40.1; ARTERIAL BLOOD GAS BASE EXCESS 7.7 (-2-2); ARTERIAL BLOOD GAS HCO3 37.8 meq/L (22-26); ARTERIAL BLOOD GAS PHT 7.31 C (7.35-7.45); ARTERIAL BLOOD GAS PO2 88.6 mmHg (80-100); ARTERIAL BLOOD GAS PO2T 88.6 (80-100); ARTERIAL BLOOD GAS pH 7.31 (7.35-7.45); ATS? YES; OXYHEMOGLOBIN 94.2 %
[2017-03-26 10:59] LABS: BASO # 0.1 (0.0-0.2); BASO % 0.6 % (0.0-2.0); EOS # 0.1 (0.0-0.7); EOS % 0.4 % (0-4.0); GRAN # 9.1 (1.4-6.5); GRAN % 72.6 % (42.2-75.2); HEMOGLOBIN 17.1 g/dl (12.5-16.0); LYMPH # 2.2 (1.2-3.4); LYMPH % 17.8 % (20.0-51.0); MEAN CELL VOLUME 100 fl (80.0-100.0); MEAN CORPUSCULAR HEMOGLOBIN 31 pg (27.0-31.0); MEAN CORPUSCULAR HGB CONC 31 g/dl (33.0-37.0); MEAN PLATELET VOLUME 11.6 fl (7.4-10.4); MONO % 8.2 % (1.7-9.3); PLATELET COUNT 227 K/mm3 (130-400); RED BLOOD COUNT 5.49 M/mm3 (4.10-5.30); REDCELL DISTRIBUTION WIDTH-CV 13.3 % (11.5-14.5); WHITE BLOOD COUNT 12.5 K/mm3 (4.8-10.8)
[2017-03-26 11:00] LABS: PH 5 (5-8); URINE APPEARANCE Cloudy; URINE BACTERIA Rare /hpf; URINE BILIRUBIN Negative (NEGATIVE); URINE BLOOD Negative (NEGATIVE); URINE COLOR Yellow; URINE GLUCOSE Negative (NEGATIVE); URINE KETONE Negative (NEGATIVE); URINE UROBILINOGEN Negative (NEGATIVE)
[2017-03-26 11:00] LABS: HEMATOCRIT 54.8 % (37.0-47.0)
[2017-03-26 11:02] LABS: URINE WBC 20-50 /hpf
[2017-03-26 11:14] LABS: ADJUSTED CALCIUM 9.3 mg/dL (8.4-10.2); ALANINE AMINOTRANSFERASE 30 U/L (9-52); ALBUMIN 3.7 gm/dL (3.5-5.0); ALKALINE PHOSPHATASE 115 U/L (50-136); ANION GAP 10 mmol/L (7-16); BILIRUBIN,TOTAL 0.9 mg/dL (0.0-1.0); BLOOD UREA NITROGEN 16 mg/dL (7-17); C-REACTIVE PROTEIN 0.8 mg/dL (0.0-0.9); CALCIUM 9.1 mg/dL (8.4-10.2); CARBON DIOXIDE 35 mmol/L (22-30); CHLORIDE 95 mmol/L (98-107); CREATININE, serum 0.56 mg/dL (0.52-1.25); GLUCOSE 124 mg/dL (74-106); POTASSIUM 4.1 mmol/L (3.4-5.0); SODIUM 141 mmol/L (137-145)
[2017-03-26] MEDS ORDERED: MIRTAZAPINE7.5 MG PO (11:44)
[2017-03-26 12:48] LABS: TROPONIN-I < 0.012 ng/mL (0.000-0.034)
[2017-03-27] VITALS (739 sets, daily range): BP systolic 94–147; BP diastolic 56–77; PULSE 75–115; TEMP 97.7–99.2; O2SAT 72–100
[2017-03-27 04:13] LABS: ARTERIAL BLD GAS O2 SATURATION 95.5 % (92-100); ARTERIAL BLD GAS TCO2 CT 40.3; ARTERIAL BLOOD GAS BASE EXCESS 12.3 (-2-2); ARTERIAL BLOOD GAS HCO3 38.6 meq/L (22-26); ARTERIAL BLOOD GAS PHT 7.47 C (7.35-7.45); ARTERIAL BLOOD GAS PO2 76.4 mmHg (80-100); ARTERIAL BLOOD GAS PO2T 76.4 (80-100); ARTERIAL BLOOD GAS pH 7.47 (7.35-7.45); OXYHEMOGLOBIN 93.8 %
[2017-03-27 04:15] LABS: ALLEN TEST YES; ALLENS TEST RESULT PASS; ATS? YES
[2017-03-28 03:27] VITALS: BP 120/70; PULSE 98; TEMP 97.8
[2017-03-28 08:44] VITALS: BP 113/72; PULSE 115; TEMP 97.9
[2017-03-28 11:25] VITALS: BP 135/72; PULSE 104; TEMP 98
[2017-03-28] MEDS ORDERED: IPRATROPIUM BROM3 M1 IH ×2 (14:58→15:56)
[2017-03-28] MEDS ORDERED: LASIX 40MG TABL40 MG PO (15:57)
[2017-03-28] MEDS ORDERED: K-TAB10 PO (15:58)
[2017-03-28 16:20] VITALS: BP 135/72; PULSE 104; TEMP 98
== END 2017-03-28 17:31 | DRG 189 ==
LOC: COL.ER 09:48 → ICU 11:28 → MEDICAL 11:28
PROVIDERS: Family Medicine
DX: J96.21 Acute and chronic respiratory failure with hypoxia (principal); G93.40 Encephalopathy, unspecified; I13.0 Hypertensive heart and chronic kidney disease with heart failure and stage 1 through stage 4 chronic kidney disease, or unspecified chronic kidney disease; I50.30 Unspecified diastolic (congestive) heart failure; N39.0 Urinary tract infection, site not specified; N18.3 Chronic kidney disease, stage 3 (moderate); I48.2 Chronic atrial fibrillation; J96.22 Acute and chronic respiratory failure with hypercapnia; E66.01 Morbid (severe) obesity due to excess calories; Z86.711 Personal history of pulmonary embolism; Z86.73 Personal history of transient ischemic attack (TIA), and cerebral infarction without residual deficits; Z87.891 Personal history of nicotine dependence; Z68.39 Body mass index [BMI] 39.0-39.9, adult
CPT/HCPCS: 99223-AI; 99233-AI; 99238; J1650; J1940; J2185; J7030

== ENCOUNTER → 2017-04-03 | Outpatient (CLI) | payer MEDICARE, OTHER ==
[~2017-04-03] MED LIST changes: +K-TAB10 PO; +LASIX 40MG TABL40 MG PO; +MIRTAZAPINE7.5 MG PO
[2017-04-03 12:23] LABS: PH 5 (5-8); SQUAMOUS EPITHELIAL 0-2 /hpf; URINE APPEARANCE Turbid; URINE BACTERIA Rare /hpf; URINE BILIRUBIN Negative (NEGATIVE); URINE BLOOD Negative (NEGATIVE); URINE COLOR Amber; URINE GLUCOSE Negative (NEGATIVE); URINE KETONE Negative (NEGATIVE); URINE RBC 0-2 /hpf; URINE UROBILINOGEN Negative (NEGATIVE); URINE WBC None Seen /hpf
[2017-04-03 14:45] LABS: BASO % 0.5 % (0.0-2.0); EOS # 0.2 (0.0-0.7); EOS % 1.9 % (0-4.0); GRAN % 63.3 % (42.2-75.2); HEMOGLOBIN 15.5 g/dl (12.5-16.0); LYMPH # 1.9 (1.2-3.4); LYMPH % 24.1 % (20.0-51.0); MEAN CELL VOLUME 101 fl (80.0-100.0); MEAN CORPUSCULAR HEMOGLOBIN 31 pg (27.0-31.0); MEAN CORPUSCULAR HGB CONC 31 g/dl (33.0-37.0); MEAN PLATELET VOLUME 12.4 fl (7.4-10.4); MONO # 0.8 (0.1-0.6); MONO % 9.9 % (1.7-9.3); PLATELET COUNT 188 K/mm3 (130-400); RED BLOOD COUNT 4.97 M/mm3 (4.10-5.30); REDCELL DISTRIBUTION WIDTH-CV 13.6 % (11.5-14.5); WHITE BLOOD COUNT 7.9 K/mm3 (4.8-10.8)
[2017-04-03 14:55] LABS: ADJUSTED CALCIUM 8.8 mg/dL (8.4-10.2); ALBUMIN 3.2 gm/dL (3.5-5.0); BILIRUBIN,TOTAL 1.1 mg/dL (0.0-1.0); CALCIUM 8.2 mg/dL (8.4-10.2); CREATININE, serum 0.54 mg/dL (0.52-1.25); POTASSIUM 4.6 mmol/L (3.4-5.0); TOTAL PROTEIN 6.4 gm/dL (6.4-8.2)
== END ==
LOC: ZLAB.STJ 12:06
PROVIDERS: Internal Medicine
DX: N39.0 Urinary tract infection, site not specified (principal)

== ENCOUNTER 2017-08-20 18:20 | Inpatient (IN) | payer MEDICARE, OTHER ==
[~2017-08-20] VITALS: Ht 175.3 cm; Wt 111.2 kg
[~2017-08-20 18:20] MED LIST changes: +ALMACONE 360 M360 ML PO; +MAPAP MULTI-SYM1 TA1 PO; +NYAMYC100000 U/G TP; +OMNICEF 300MG300 MG PO; +PHENERGAN25 MG RC
[2017-08-20 19:41] LABS: BASO % 0.4 % (0.0-2.0); EOS # 0.1 (0.0-0.7); EOS % 1.1 % (0-4.0); GRAN # 6.4 (1.4-6.5); GRAN % 68.3 % (42.2-75.2); HEMATOCRIT 53.2 % (37.0-47.0); LYMPH # 1.8 (1.2-3.4); LYMPH % 19.1 % (20.0-51.0); MEAN CELL VOLUME 101 fl (80.0-100.0); MEAN CORPUSCULAR HEMOGLOBIN 30 pg (27.0-31.0); MEAN CORPUSCULAR HGB CONC 30 g/dl (33.0-37.0); MEAN PLATELET VOLUME 12.2 fl (7.4-10.4); MONO % 10.8 % (1.7-9.3); PLATELET COUNT 192 K/mm3 (130-400); RED BLOOD COUNT 5.29 M/mm3 (4.10-5.30); REDCELL DISTRIBUTION WIDTH-CV 14.9 % (11.5-14.5)
[2017-08-20 19:44] LABS: INR 2.7 (0.8-3.0); PROTHROMBIN TIME 32.4 SECONDS (9.7-12.8)
[2017-08-20 19:48] LABS: ALANINE AMINOTRANSFERASE 29 U/L (9-52); ALBUMIN 3.7 gm/dL (3.5-5.0); ALKALINE PHOSPHATASE 115 U/L (50-136); ANION GAP 11 mmol/L (7-16); AST,SGOT 29 U/L (15-37); BILIRUBIN,TOTAL 0.7 mg/dL (0.0-1.0); BLOOD UREA NITROGEN 15 mg/dL (7-17); CARBON DIOXIDE 30 mmol/L (22-30); CHLORIDE 102 mmol/L (98-107); CREATINE KINASE 21 U/L (30-135); CREATININE, serum 0.85 mg/dL (0.52-1.25); GLUCOSE 128 mg/dL (74-106); POTASSIUM 3.5 mmol/L (3.4-5.0); SODIUM 143 mmol/L (137-145); TOTAL PROTEIN 7.4 gm/dL (6.4-8.2)
[2017-08-20 19:57] LABS: COLLECTION METHOD CATHETER
[2017-08-20 20:01] LABS: TROPONIN-I < 0.012 ng/mL (0.000-0.034)
[2017-08-20 20:03] LABS: MUCOUS Present /lpf; PH 5 (5-8); SQUAMOUS EPITHELIAL 0-2 /hpf; URINE APPEARANCE Clear; URINE BACTERIA None Seen /hpf; URINE BILIRUBIN Negative (NEGATIVE); URINE BLOOD 1+ (NEGATIVE); URINE COLOR Yellow; URINE GLUCOSE Negative (NEGATIVE); URINE KETONE Negative (NEGATIVE); URINE LEUKOCYTE ESTERASE Negative (NEGATIVE); URINE NITRATE Negative (NEGATIVE); URINE PROTEIN(semi-quant) Negative (NEGATIVE); URINE UROBILINOGEN Negative (NEGATIVE)
[2017-08-20 23:35] VITALS: BP 130/75; PULSE 88; TEMP 98.5
[2017-08-21] MEDS ORDERED: LASIX 40MG TABL40 MG PO (00:30)
[2017-08-21] MEDS ORDERED: LEXAPRO 10MG10 MG PO (00:32)
[2017-08-21] MEDS ORDERED: SEROQUEL 2525 MG/TAB PO (00:39)
[2017-08-21 05:38] VITALS: BP 124/80; PULSE 100; TEMP 98.7
[2017-08-21 07:34] VITALS: BP 125/100; PULSE 69; TEMP 97.4
[2017-08-21 11:41] VITALS: BP 109/71; PULSE 59; TEMP 97.5
[2017-08-21 15:46] VITALS: BP 108/89; PULSE 60; TEMP 97.6
[2017-08-21 20:26] VITALS: BP 120/81; PULSE 55; TEMP 97.5
[2017-08-21 23:54] VITALS: BP 131/80; PULSE 104; TEMP 97.5
[2017-08-22] VITALS (7 sets, daily range): BP systolic 107–179; BP diastolic 80–143; PULSE 54–102; TEMP 97.4–98.5
[2017-08-23] VITALS (7 sets, daily range): BP systolic 101–162; BP diastolic 73–125; PULSE 56–125; TEMP 96.8–98.5
[2017-08-23 06:35] LABS: HEMOGLOBIN 15.8 g/dl (12.5-16.0); MEAN CELL VOLUME 101 fl (80.0-100.0); MEAN CORPUSCULAR HEMOGLOBIN 30 pg (27.0-31.0); MEAN CORPUSCULAR HGB CONC 30 g/dl (33.0-37.0); MEAN PLATELET VOLUME 12.4 fl (7.4-10.4); PLATELET COUNT 210 K/mm3 (130-400); RED BLOOD COUNT 5.27 M/mm3 (4.10-5.30)
[2017-08-23 06:37] LABS: HEMATOCRIT 53.3 % (37.0-47.0)
[2017-08-23 06:55] LABS: CREATININE, serum 1.26 mg/dL (0.52-1.25); POTASSIUM 4.1 mmol/L (3.4-5.0)
[2017-08-23 07:50] LABS: BAND 29 % (0-10); LYMPHOCYTE 21 % (20.0-51.0); NEUTROPHILS 49 % (42.0-75.2); PLATELET ESTIMATE NORMAL (NORMAL)
[2017-08-23 18:38] LABS: INFLUENZA A NEGATIVE; INFLUENZA B NEGATIVE
[2017-08-24 01:15] VITALS: BP 119/95
[2017-08-24 05:18] VITALS: BP 119/99; BP 95/65
[2017-08-24 08:37] VITALS: BP 118/86; PULSE 89; TEMP 98.7
[2017-08-24 09:22] LABS: BASO # 0.1 (0.0-0.2); BASO % 0.6 % (0.0-2.0); EOS % 0.1 % (0-4.0); GRAN # 7.3 (1.4-6.5); GRAN % 69.1 % (42.2-75.2); HEMOGLOBIN 16.2 g/dl (12.5-16.0); LYMPH # 1.7 (1.2-3.4); LYMPH % 16.4 % (20.0-51.0); MEAN CELL VOLUME 103 fl (80.0-100.0); MEAN CORPUSCULAR HEMOGLOBIN 30 pg (27.0-31.0); MEAN CORPUSCULAR HGB CONC 29 g/dl (33.0-37.0); MEAN PLATELET VOLUME 12.5 fl (7.4-10.4); MONO # 1.4 (0.1-0.6); MONO % 13.3 % (1.7-9.3); PLATELET COUNT 197 K/mm3 (130-400); REDCELL DISTRIBUTION WIDTH-CV 15.3 % (11.5-14.5)
[2017-08-24 09:23] LABS: CALCIUM 8.9 mg/dL (8.4-10.2); CREATININE, serum 1.58 mg/dL (0.52-1.25); POTASSIUM 3.9 mmol/L (3.4-5.0)
[2017-08-24 09:24] LABS: HEMATOCRIT 55.7 % (37.0-47.0)
[2017-08-24 11:49] LABS: PROTHROMBIN TIME 63.1 SECONDS (9.7-12.8)
[2017-08-24 11:50] LABS: INR 5.3 (0.8-3.0)
[2017-08-24 12:11] VITALS: BP 112/85; PULSE 107; TEMP 97
[2017-08-24 16:45] VITALS: BP 106/55; PULSE 46; TEMP 98.1
[2017-08-24 19:10] VITALS: BP 134/70; PULSE 89
[2017-08-25 00:57] VITALS: BP 105/54; PULSE 58; TEMP 98.2
[2017-08-25 06:57] LABS: BASO # 0.1 (0.0-0.2); BASO % 0.6 % (0.0-2.0); EOS % 0.3 % (0-4.0); GRAN # 7.5 (1.4-6.5); GRAN % 67.8 % (42.2-75.2); HEMOGLOBIN 16.3 g/dl (12.5-16.0); LYMPH # 1.9 (1.2-3.4); LYMPH % 17.4 % (20.0-51.0); MEAN CELL VOLUME 103 fl (80.0-100.0); MEAN CORPUSCULAR HEMOGLOBIN 30 pg (27.0-31.0); MEAN CORPUSCULAR HGB CONC 30 g/dl (33.0-37.0); MEAN PLATELET VOLUME 12.4 fl (7.4-10.4); MONO # 1.5 (0.1-0.6); MONO % 13.5 % (1.7-9.3); PLATELET COUNT 213 K/mm3 (130-400); RED BLOOD COUNT 5.37 M/mm3 (4.10-5.30); REDCELL DISTRIBUTION WIDTH-CV 15.3 % (11.5-14.5)
[2017-08-25 06:59] LABS: HEMATOCRIT 55.1 % (37.0-47.0)
[2017-08-25 07:17] LABS: INR 5.3 (0.8-3.0)
[2017-08-25 07:19] LABS: ALBUMIN 3.2 gm/dL (3.5-5.0); BILIRUBIN,TOTAL 1.2 mg/dL (0.0-1.0); CALCIUM 8.9 mg/dL (8.4-10.2); CREATININE, serum 1.66 mg/dL (0.52-1.25); POTASSIUM 3.8 mmol/L (3.4-5.0); TOTAL PROTEIN 6.7 gm/dL (6.4-8.2)
[2017-08-25 08:00] VITALS: BP 137/56; PULSE 79; TEMP 98.2
[2017-08-25 11:07] VITALS: BP 107/90; PULSE 84; TEMP 97.9
[2017-08-25 15:51] VITALS: BP 150/88; PULSE 60; TEMP 97.8
[2017-08-25 20:00] VITALS: PULSE 52; TEMP 97.3
[2017-08-26 00:24] VITALS: BP 114/84; PULSE 62; TEMP 98
[2017-08-26 04:09] VITALS: BP 117/93; PULSE 54
[2017-08-26 04:41] LABS: HEMOGLOBIN 15.8 g/dl (12.5-16.0); MEAN CELL VOLUME 103 fl (80.0-100.0); MEAN CORPUSCULAR HEMOGLOBIN 30 pg (27.0-31.0); MEAN CORPUSCULAR HGB CONC 29 g/dl (33.0-37.0); MEAN PLATELET VOLUME 12.2 fl (7.4-10.4); PLATELET COUNT 191 K/mm3 (130-400); RED BLOOD COUNT 5.27 M/mm3 (4.10-5.30); REDCELL DISTRIBUTION WIDTH-CV 15.6 % (11.5-14.5)
[2017-08-26 04:43] LABS: HEMATOCRIT 54.2 % (37.0-47.0)
[2017-08-26 04:48] LABS: INR 7.3 (0.8-3.0); PROTHROMBIN TIME 88.5 SECONDS (9.7-12.8)
[2017-08-26 04:52] LABS: CALCIUM 8.8 mg/dL (8.4-10.2); CREATININE, serum 2.06 mg/dL (0.52-1.25); LYMPHOCYTE 12 % (20.0-51.0); NEUTROPHILS 75 % (42.0-75.2); NUCLEATED RED BLOOD CELL 2 (0-6); POLYCHROMASIA 1+; POTASSIUM 4.3 mmol/L (3.4-5.0); TOTAL PROTEIN 6.4 gm/dL (6.4-8.2); TOXIC GRANULATION PRESENT
[2017-08-26 04:53] LABS: ANISOCYTOSIS 1+; POIKILOCYTOSIS 1+; TEAR DROP CELLS 1+
[2017-08-26 08:08] VITALS: BP 128/95; PULSE 67; TEMP 98.9
[2017-08-26 12:12] VITALS: BP 77/58; PULSE 57; TEMP 96.9
== END 2017-08-26 23:19 | disposition expired | DRG 91 ==
LOC: COL.ER 18:20 → MEDICAL 21:16 → PEDS 21:16 → COL.ER 21:16 → PEDS 23:00 → MEDICAL 08-21 17:50 → PEDS 08-21 17:50 → MEDICAL 08-21 17:50
PROVIDERS: Emergency Medicine; Nurse Practitioner Family; Physician Assistant
PROC: 02HV33Z Insertion of Infusion Device into Superior Vena Cava, Percutaneous Approach (ICD-10-PCS; principal; 2017-08-25)
DX: G92 Toxic encephalopathy (principal); J18.9 Pneumonia, unspecified organism; I50.32 Chronic diastolic (congestive) heart failure; Z66 Do not resuscitate; Z51.5 Encounter for palliative care; I48.91 Unspecified atrial fibrillation; Z95.0 Presence of cardiac pacemaker; N18.3 Chronic kidney disease, stage 3 (moderate); F01.50 Vascular dementia, unspecified severity, without behavioral disturbance, psychotic disturbance, mood disturbance, and anxiety; E66.01 Morbid (severe) obesity due to excess calories; Z68.36 Body mass index [BMI] 36.0-36.9, adult; K72.90 Hepatic failure, unspecified without coma; K75.4 Autoimmune hepatitis; Z86.711 Personal history of pulmonary embolism; Z79.01 Long term (current) use of anticoagulants
CPT/HCPCS: 99232-AI; 99233-AI; C1751; C1894; J1644; J1956; J2270; J7030; J7050; Q9967